=== PATIENT | female | born 1995 | race Caucasian/White ===

== ENCOUNTER 2019-10-28 22:03 | Emergency (ER) | payer OTHER ==
[~2019-10-28] VITALS: Ht 175.3 cm; Wt 112.0 kg
[~2019-10-28 22:03] MED LIST: ALBU8.5H5 INH; HYDR-3240 PO; NORG1TAB6 PO; OXYC5TAB2 PO
[2019-10-28] MEDS ORDERED: MORPHINE SULFATE 4 MG/ML, 1ML IVPush PRN (22:30)
[2019-10-28] MEDS ORDERED: ONDANSETRON 2MG/ML, 2ML IVPush ONE (22:30)
[2019-10-28 22:46] LABS: BASOPHILS # (AUTO) 0.05 x10^3/uL (0-0.1); BASOPHILS % (AUTO) 1 % (0-1); EOSINOPHILS # (AUTO) 0.49 x10^3/uL (0-0.4); EOSINOPHILS % (AUTO) 5 % (1-7); LYMPHOCYTES # (AUTO) 3.38 x10^3/uL (1-3.4); LYMPHOCYTES % (AUTO) 33 % (22-44); MD NO; MEAN CORPUSCULAR HEMOGLOBIN 28.5 pg (27.0-34.8); MEAN CORPUSCULAR HGB CONC 34.1 g/dL (32.4-35.8); MEAN CORPUSCULAR VOLUME 83.8 fL (80-100); MONOCYTES # (AUTO) 0.57 x10^3/uL (0.2-0.8); MONOCYTES % (AUTO) 6 % (2-9); NEUTROPHILS # (AUTO) 5.76 x10^3/uL (1.8-6.8); NEUTROPHILS % (AUTO) 56 % (42-75); PLATELET COUNT 356 x10^3/uL (130-400); RED BLOOD COUNT 4.81 x10^6/uL (3.82-5.3); RED CELL DISTRIBUTION WIDTH 13.1 % (9.6-15.2)
[2019-10-28] MEDS ORDERED: ONDANSETRON 2MG/ML, 2ML ONE (22:47)
[2019-10-28] MEDS ORDERED: MORPHINE SULFATE 4 MG/ML, 1ML ONE (22:47)
[2019-10-28 22:54] LABS: ALANINE AMINOTRANSFERASE 26 U/L (12-78); ALBUMIN 3.9 g/dL (3.4-5.0); ANION GAP 6 mmol/L (5-15); CALCIUM 8.9 mg/dL (8.5-10.1); CHLORIDE 110 mmol/L (98-107); CREATININE 1.02 mg/dL (0.55-1.02)
[2019-10-28 22:58] LABS: ALKALINE PHOSPHATASE 90 U/L (45-117); BILIRUBIN,TOTAL 0.3 mg/dL (0.2-1.0); TOTAL PROTEIN 7.9 g/dL (6.4-8.2)
--- NOTE | 2019-10-28 23:23 | NUR ---
RN to bedside, patient reviewed medications ordered by midlevel provider. Patient agreeable to intravenous access. RN returned, placed peripheral iv catheter per protocol. Patient tolerated well. Labs drawn and sent with research director. RN then returned administered analgesic and antiemetic medications per order. outboard technician to bedside and patient out of room for ulrasound of abdomen.
[2019-10-28 23:27] VITALS: BP 105/55
== END 2019-10-29 00:08 | disposition home or self-care (01) ==
LOC: ED 23:03
DX: K29.00 Acute gastritis without bleeding (principal); R16.1 Splenomegaly, not elsewhere classified
CPT/HCPCS: 36415; 76700; 80053; 83690; 84703; 85025; 96374; 96375; 99284; J2270; J2405

== ENCOUNTER 2019-12-08 21:46 | Emergency (ER) | payer OTHER ==
[~2019-12-08] VITALS: Ht 175.3 cm; Wt 111.7 kg
[2019-12-08] MEDS ORDERED: SERT25TA PO (22:00)
--- NOTE | 2019-12-08 22:00 | NUR ---
Pt alert and oriented. Pt slightly tearful. Pt reports LMP 10/05/19. Pt is approx 6-7 weeks. Pt reports she is being seen by OB and had a PAP last with some spotting that has increased over the last two days. Pt reports bleeding through her pants tonight. PA at bedside.
--- NOTE | 2019-12-08 22:12 | NUR ---
Lab at bedside for draw. Urine collected and sent. Urine noted to be dark red and have blood clots in it. Pt in gown. Pt given call light. Pt aware of plan for US and lab tests.
[2019-12-08 22:21] LABS: BASOPHILS # (AUTO) 0.06 x10^3/uL (0-0.1); BASOPHILS % (AUTO) 1 % (0-1); EOSINOPHILS # (AUTO) 0.32 x10^3/uL (0-0.4); EOSINOPHILS % (AUTO) 3 % (1-7); LYMPHOCYTES # (AUTO) 3.21 x10^3/uL (1-3.4); LYMPHOCYTES % (AUTO) 32 % (22-44); MD NO; MEAN CORPUSCULAR HEMOGLOBIN 27.7 pg (27.0-34.8); MEAN CORPUSCULAR HGB CONC 33.1 g/dL (32.4-35.8); MEAN CORPUSCULAR VOLUME 83.7 fL (80-100); MEAN PLATELET VOLUME 7.9 fL (7.4-10.4); MONOCYTES % (AUTO) 6 % (2-9); NEUTROPHILS # (AUTO) 5.93 x10^3/uL (1.8-6.8); NEUTROPHILS % (AUTO) 59 % (42-75); PLATELET COUNT 392 x10^3/uL (130-400); RED BLOOD COUNT 4.76 x10^6/uL (3.82-5.3); RED CELL DISTRIBUTION WIDTH 12.9 % (9.6-15.2)
[2019-12-08 22:32] LABS: ALBUMIN 3.8 g/dL (3.4-5.0); ANION GAP 7 mmol/L (5-15); CALCIUM 9.2 mg/dL (8.5-10.1); CHLORIDE 107 mmol/L (98-107); CREATININE 0.84 mg/dL (0.55-1.02)
[2019-12-08 22:37] LABS: CULTURE INDICATED? YES; MICROSCOPIC INDICATED
[2019-12-08 23:08] VITALS: BP 134/71
--- NOTE | 2019-12-08 23:11 | NUR ---
Rounded with pt. Pt updated on wait for US results. VSS. Pads/supplies given to pt. Call light within reach.
--- NOTE | 2019-12-08 23:15 | NUR ---
PA at bedside.
--- NOTE | 2019-12-08 23:32 | NUR ---
Pt d/c'd to self care. Pt alert, oriented and ambulatory. NAD. Pt educated on OTC meds, follow-up, s/sx to return, and home care. Pt VU. Pt ambulated out of ER.
== END 2019-12-08 23:34 | disposition home or self-care (01) ==
LOC: ED 22:55
DX: O03.9 Complete or unspecified spontaneous abortion without complication (principal)
CPT/HCPCS: 36415; 76801; 80048; 81001; 82040; 84702; 85025; 86901; 87086; 99284

== ENCOUNTER 2020-02-23 00:42 | Emergency (ER) | payer OTHER ==
[~2020-02-23] VITALS: Ht 175.3 cm; Wt 113.6 kg
[~2020-02-23 00:42] MED LIST changes: +SERT25TA PO
--- NOTE | 2020-02-23 01:20 | NUR ---
FIRST PT CONTACT: PT RESTING IN [facility], SIGNIFICANT OTHER AT BEDSIDE. PT STATES "I THINK IM ON THE POSITIVE END OF A MISCARRIAGE" PT REPORTS SHE WAS 8 WEEKS ALONG AND BEGAN BLEEDING. PT REPORTS ONE OTHER MISCARRIAGE, DENIES DIZZINESS OR NUMBNESS. PT CMS AND GROSS NEURO INTACT. WCTM.
[2020-02-23 01:25] LABS: BASOPHILS # (AUTO) 0.06 x10^3/uL (0-0.1); BASOPHILS % (AUTO) 1 % (0-1); EOSINOPHILS # (AUTO) 0.31 x10^3/uL (0-0.4); EOSINOPHILS % (AUTO) 3 % (1-7); LYMPHOCYTES # (AUTO) 2.28 x10^3/uL (1-3.4); LYMPHOCYTES % (AUTO) 24 % (22-44); MD NO; MEAN CORPUSCULAR HEMOGLOBIN 27.4 pg (27.0-34.8); MEAN CORPUSCULAR HGB CONC 33.1 g/dL (32.4-35.8); MEAN CORPUSCULAR VOLUME 82.7 fL (80-100); MEAN PLATELET VOLUME 7.7 fL (7.4-10.4); MONOCYTES # (AUTO) 0.53 x10^3/uL (0.2-0.8); MONOCYTES % (AUTO) 6 % (2-9); NEUTROPHILS # (AUTO) 6.46 x10^3/uL (1.8-6.8); NEUTROPHILS % (AUTO) 67 % (42-75); PLATELET COUNT 318 x10^3/uL (130-400); RED BLOOD COUNT 4.49 x10^6/uL (3.82-5.3); RED CELL DISTRIBUTION WIDTH 13.5 % (9.6-15.2)
[2020-02-23 01:35] LABS: ALBUMIN 3.5 g/dL (3.4-5.0); ANION GAP 7 mmol/L (5-15); CALCIUM 8.6 mg/dL (8.5-10.1); CHLORIDE 108 mmol/L (98-107); CREATININE 0.89 mg/dL (0.55-1.02)
--- NOTE | 2020-02-23 01:46 | NUR ---
PT TO US VIA [facility]. CONDITION UNCHANGED, P/W/D, NAD
--- NOTE | 2020-02-23 02:15 | NUR ---
PT BACK FROM US, AWAITING RESULTS. NAD, VSS, SIGNIFICANT OTHER AT BS, WCTM.
[2020-02-23] MEDS ORDERED: HYDROcodone/APAP 5/325 TABLET ONE (03:14)
--- NOTE | 2020-02-23 03:22 | NUR ---
PT PELVIC EXAM DONE WITH RN PRESENT. PT TOLERATED WELL. PT TO BE MEDICATED THEN DC'D. HELEN.
[2020-02-23 03:25] VITALS: BP 135/66
[2020-02-23] MEDS ORDERED: HYDROcodone/APAP 5/325 TABLET PO ONE (03:30)
== END 2020-02-23 03:30 | disposition home or self-care (01) ==
LOC: ED 01:31
DX: O03.4 Incomplete spontaneous abortion without complication (principal); R10.2 Pelvic and perineal pain
CPT/HCPCS: 36415; 76801; 80048; 82040; 84702; 85025; 86901; 99284